=== PATIENT | male | born 1955 | race African-American/Black ===

== ENCOUNTER 2020-11-23 19:15 | Emergency (ER) | payer OTHER, MEDICAID ==
[~2020-11-23] VITALS: Ht 165.1 cm; Wt 73.1 kg
[~2020-11-23 19:15] MED LIST: HYDR-3164 PO; SILV20CR14 TP
[2020-11-24] MEDS ORDERED: PRED50TA PO (02:11)
[2020-11-24] MEDS ORDERED: CYCL10TA2 PO (02:11)
--- NOTE | 2020-11-24 02:12 | PHYS DOC ---
Past Medical History Past Medical History: COPD Past Surgical History: No Surgical History Additional Past Surgical Histo: dental Smoking Status: Former Smoker Alcohol Use: None Drug Use: None General Adult EDM: Chief Complaint: BACK PAIN - NO INJURY HPI: HPI: Patient is a 65 year old male who presents with left lower back pain since about 11 AM this morning. Was out doing yard work when he slipped and lost his footing. He had to twist to catch himself. Did not ultimately fall or sustain any trauma. Afterwards had pain in his left lower back. Comes on in spasms. Does not radiate. No weakness, numbness in the legs. No bowel/bladder incontinence. No saddle anesthesia. No fever/chills. No previous back surgeries. He is not on any immunosuppressive medications. No history of IVDU. Review of Systems: Review of Systems: Constitutional: Denies fever or chills. [] Eyes: Denies change in visual acuity. [] HENT: Denies nasal congestion or sore throat. [] Respiratory: Denies cough or shortness of breath. [] Cardiovascular: Denies chest pain or edema. [] GI: Denies abdominal pain, nausea, vomiting, bloody stools or diarrhea. [] : Denies dysuria. [] Musculoskeletal: Reports left lower back pain. Denies joint pain. [] Integument: Denies rash. [] Neurologic: Denies headache, focal weakness or sensory changes. [] Endocrine: Denies polyuria or polydipsia. [] Lymphatic: Denies swollen glands. [] Psychiatric: Denies depression or anxiety. [] Heart Score: C/O Chest Pain: No Risk Factors: Risk Factors: DM, Current or recent (<one month) smoker, HTN, HLP, family history of CAD, obesity. Risk Scores: Score 0 - 3: 2.5% MACE over next 6 weeks - Discharge Home Score 4 - 6: 20.3% MACE over next 6 weeks - Admit for Clinical Observation Score 7 - 10: 72.7% MACE over next 6 weeks - Early Invasive Strategies Allergies: Allergies: Allergies Coded Allergies Type Severity Reaction Last Updated Verified No Known Drug Allergies 01/08/14 No Physical Exam: PE: Constitutional: Well developed, well nourished, no acute distress, non-toxic appearance. [] HENT: Normocephalic, atraumatic, bilateral external ears normal, oropharynx moist, no oral exudates, nose normal. [] Eyes: PERRLA, EOMI, conjunctiva normal, no discharge. [] Neck: Normal range of motion, no tenderness, supple, no stridor. [] Cardiovascular:Heart rate regular rhythm, no murmur [] Lungs & Thorax: Bilateral breath sounds clear to auscultation [] Abdomen: Bowel sounds normal, soft, no tenderness, no masses, no pulsatile masses. [] Skin: Warm, dry, no erythema, no rash. [] Back: No midline spinal tenderness. Mild left-sided paraspinal tenderness to palpation. [] Extremities: No tenderness, no cyanosis, no clubbing, ROM intact, no edema. [] Neurologic: Alert and oriented X 3, normal motor function, normal sensory function, no focal deficits noted. Specifically 5/5 strength bilaterally in: L1-4: adduction of thighs L3-4: extension at knee L4-5: dorsiflexion of ankle L5: Extension of toes S1-S2: Plantarflexion of ankle [] Psychologic: Affect normal, judgement normal, mood normal. [] Current Patient Data: Vital Signs: Vital Signs Date Time Temp Pulse Resp B/P (MAP) Pulse Ox O2 Delivery O2 Flow Rate FiO2 11/23/20 23:05 75 151/91 (106) 96 Room Air EKG: EKG: [] Radiology/Procedures: Radiology/Procedures: [] Course & Med Decision Making: Course & Med Decision Making Pertinent Labs and Imaging studies reviewed. (See chart for details) Patient is 65-year-old male who presents with history and exam consistent with muscular strain of the left lower back. No back pain red flags to suggest more serious etiology. He sustained no trauma. No infectious symptoms. No evidence of cauda equina. Do not feel that he requires any emergent imaging. We will treat with a course of prednisone and Flexeril. Patient will follow up with his PCP later this week or early next week. Return precautions discussed. Pillo Disclaimer: Pillo Disclaimer: This electronic medical record was generated, in whole or in part, using a voice recognition dictation system. Departure Departure Impression: Primary Impression: Lumbar strain Disposition: HOME / SELF CARE / HOMELESS Condition: STABLE Referrals: UNKNOWN PCP NAME (PCP) Please follow-up with your PCP at later this week or early next week. Patient Instructions: Back Pain, Adult Scripts Cyclobenzaprine Hcl (CYCLOBENZAPRINE HCL) 10 Mg Tablet 1 TAB PO TID PRN PRN for BREAKTHROUGH PAIN, #21 TAB Prov: UBALDO ROSSI MD 11/24/20 Prednisone (PREDNISONE) 50 Mg Tablet 1 TAB PO DAILY, #5 TAB Prov: UBALDO ROSSI MD 11/24/20 UBALDO ROSSI MD Nov 24, 2020 02:12
[2020-11-24 02:38] VITALS: BP 154/82
== END 2020-11-24 02:45 | disposition home or self-care (01) ==
LOC: ER 19:15
DX: S39.012A Strain of muscle, fascia and tendon of lower back, initial encounter (principal); J44.9 Chronic obstructive pulmonary disease, unspecified; Z87.891 Personal history of nicotine dependence; W01.0XXA Fall on same level from slipping, tripping and stumbling without subsequent striking against object, initial encounter; Y93.89 Activity, other specified; Y92.89 Other specified places as the place of occurrence of the external cause; Y99.8 Other external cause status
CPT/HCPCS: 99283